=== PATIENT | male | born 1995 | race Asian ===

== ENCOUNTER 2023-06-25 09:12 | Emergency (ER) | payer OTHER, SELFPAY ==
[2023-06-25 09:16] VITALS: BP 132/72; PULSE 77; RESP 18; TEMP 36.9; O2SAT 100
[2023-06-25] MEDS: KETOROLAC 30 MG/ML VIAL (*BKC) IM (09:43)
[2023-06-25] MEDS: LIDOCAINE 5% PATCH 1 PATCH TRANSDERM (09:43)
--- NOTE | 2023-06-25 11:13 | ED.BACK ---
HPI - Back Pain/Injury General Chief Complaint: Back Pain/Injury Stated Complaint: back pain Time Seen by Provider: 06/25/23 09:24 History of Present Illness HPI Narrative: This is a 28-year-old male, with no significant past medical history, who complains of low back pain, greater on the right side described as sore and sharp, rated 8/10. The patient states he was playing table tennis, when he reached aggressively to the left and felt sharp low back pain. He denies fevers, chills, weakness/numbness, loss sensation in the groin or loss of bowel or bladder control Related Data Allergies Allergy/AdvReac Type Severity Reaction Status Date / Time No Known Allergies Allergy Verified 06/25/23 09:18 Review of Systems Review of Systems: CONSTITUTIONAL: Denies fever, chills, or sweats. CARDIOVASCULAR: Denies chest pain, palpitations, or edema. RESPIRATORY: Denies cough or dyspnea. GASTROINTESTINAL: Denies abdominal pain, nausea, vomiting, or diarrhea. GENITOURINARY: Denies dysuria or hematuria. SKIN: Denies rash or itching. MUSCULOSKELETAL: Low back pain denies joint pain, or myalgia. NEUROLOGIC: Denies headache, numbness, dizziness, or weakness. PSYCHIATRIC: Denies anxiety or depression. PMFSH Past Medical History Medical History (Updated 06/25/23 @ 18:46 by Brett Morataya MD) No significant past medical history Surgical History Surgical History (Updated 06/25/23 @ 18:46 by Brett Morataya MD) No significant past surgical history Social History Social History (Updated 06/25/23 @ 18:46 by Brett Morataya MD) Smoking status: Never smoker Alcohol intake: never Substance use: never Exam Narrative: GENERAL: Well-developed, well-nourished, appears uncomfortable HEAD: Normocephalic, atraumatic. EYES: PERRLA and EOMI. CHEST: Clear to auscultation. No respiratory distress. No wheezes rales or rhonchi HEART: Regular rate and rhythm. No murmur heard. Normal peripheral pulses. ABDOMEN: Soft, nontender, nondistended, normal active bowel sounds. BACK: No midline spine tenderness to palpation, no step-off or crepitus. Mild tenderness to palpation of the paraspinal musculature of the lumbar spine at approximately L4/L5 with muscle spasm EXTREMITIES: Normal range of motion. No edema. SKIN: Warm, dry, no rash. NEURO: Alert and oriented x3. Strength 5/5 in all extremities, sensation intact bilaterally, PSYCH: Normal mood and affect. Course Course Emergency Course: 11:15 - The patient's exam is not concerning for fracture or cauda equina. His pain improved with lidocaine patch and Toradol. Will discharge with lidocaine patch, recommendation for Tylenol and ibuprofen and muscle relaxers. Discussed return and emergency precautions including signs/symptoms of cauda equina. I advised the patient to follow-up with his primary care doctor. The patient voiced understanding and is comfortable with the plan. All questions answered to his satisfaction. Vital Signs Vital signs: Vital Signs Temperature 98.5 F 06/25/23 09:16 Pulse Rate 77 06/25/23 09:16 Respiratory Rate 18 06/25/23 09:16 Blood Pressure 132/72 06/25/23 09:16 Pulse Oximetry 100 06/25/23 09:16 Oxygen Delivery Room Air 06/25/23 09:16 Temperature 98.5 F 06/25/23 09:16 Pulse Rate 69 06/25/23 12:06 Respiratory Rate 20 06/25/23 12:06 Blood Pressure 100/71 06/25/23 12:06 Pulse Oximetry 99 06/25/23 12:06 Oxygen Delivery Room Air 06/25/23 09:16 MDM - Back Pain/Injury MDM Narrative Medical decision making narrative: Plan: Pain control, reassess Differential Diagnosis Differential diagnosis: Likely lumbar radiculopathy, strain of lumbar region and other Discharge Plan Discharge Clinical Impression: Strain of lumbar region Patient Disposition: Home, Self-Care Condition: Stable Instructions: Antibiotic Form, Acute Low Back Pain (ED), Lower Back Exercises (ED) Additional Instruction
[2023-06-25 12:06] VITALS: BP 100/71; PULSE 69; RESP 20; O2SAT 99
== END 2023-06-25 12:08 | disposition home or self-care (01) ==
PROVIDERS: Emergency Provider Preventive Medicine Aerospace Medicine
DX: S39.012A Strain of muscle, fascia and tendon of lower back, initial encounter (principal); X50.0XXA Overexertion from strenuous movement or load, initial encounter; Y93.73 Activity, racquet and hand sports
CPT/HCPCS: 96372; 99283; A9270; J1885